=== PATIENT | male | born 1955 | race Caucasian/White ===

== ENCOUNTER 2018-07-14 20:25 | Inpatient (IN) | payer OTHER, MEDICAID ==
[~2018-07-14] VITALS: Ht 167.6 cm; Wt 74.4 kg
[~2018-07-14 20:25] MED LIST: AMLO5TAB4; ATOR40TA70; FAMO-38; GLYC1SUP; INSU3INS6 SQ; LEVO500T2 PO; LISI-604; LOPHC5
[2018-07-14] MEDS ORDERED: SODIUM CHLORIDE 0.9% 1,000 ML IV ONE (21:14)
[2018-07-14 21:53] LABS: BASOPHILS % 0.4 % (0.0-2.0); EOSINOPHILS % 0.6 % (0.0-5.0); HEMATOCRIT. 42.1 % (42.0-52.0); HEMOGLOBIN. 13.9 g/dL (14.0-18.0); LYMPHOCYTES % 10.2 % (20.0-50.0); MEAN CORPUSCULAR HEMOGLOBIN 28.9 pg (28.0-32.0); MEAN CORPUSCULAR VOLUME 87.4 fL (80.0-94.0); MEAN PLATELET VOLUME 7.5 fl (7.4-10.4); MONOCYTES % 5.7 % (2.0-8.0); NEUTROPHILS % 83.1 % (40.0-76.0); PLATELET 357 x1000/uL (130-400); RED BLOOD CELL COUNT 4.82 mill/uL (4.7-6.1); RED CELL DISTRIBUTION WIDTH 16.1 % (11.6-14.6)
[2018-07-14 21:57] LABS: CHLORIDE 107 mEq/L (98-107)
[2018-07-14 22:02] LABS: PARTIAL THROMBOPLASTIN TIME 31.3 sec (23.4-31.0); PROTHROMBIN TIME 10.1 sec (9.6-11.0)
[2018-07-14 22:04] LABS: CLARITY URINE CLOUDY (CLEAR); COLOR URINE YELLOW (YELLOW); KETONES URINE NEGATIVE (NEGATIVE); LEUKOCYTE ESTERASE URINE NEGATIVE (NEGATIVE); NITRITE URINE NEGATIVE (NEGATIVE); OCCULT BLOOD URINE 1+ (NEGATIVE); PROTEIN URINE 2+ (NEGATIVE); SPECIFIC GRAVITY URINE 1.018 (1.005-1.030)
[2018-07-15] MEDS ORDERED: DEXTROSE 50% WATER 50ML SYRINGE IV ONE (00:45)
[2018-07-15] MEDS ORDERED: GUAIFENESIN 200MG/10ML SUGAR FREE UDC PO PRN (09:00)
[2018-07-15] MEDS ORDERED: IPRATROPIUM/ALBUTEROL 0.5-3(2.5)MG/3ML NEB INH PRN (09:00)
[2018-07-15] MEDS ORDERED: CLONIDINE 0.1MG TABLET PO PRN (09:00)
[2018-07-15] MEDS ORDERED: ONDANSETRON HCL 4MG/2ML INJ IV PRN (09:00)
[2018-07-15] MEDS ORDERED: ACETAMINOPHEN 325MG TABLET PO PRN (09:00)
[2018-07-15] MEDS ORDERED: DOCUSATE SODIUM 100MG CAPSULE PO PRN (09:00)
[2018-07-15] MEDS ORDERED: DIPHENHYDRAMINE 50MG/ML VIAL IV PRN (09:00)
[2018-07-15] MEDS ORDERED: MAGNESIUM/ALUMINUM HYDROXIDE/SIMETHICONE 30ML UDC PO PRN (09:00)
[2018-07-15] MEDS ORDERED: HYDROCODONE/ACETAMINOPHEN 5/325MG TABLET PO PRN (09:00)
[2018-07-15 09:37] LABS: PHOSPHORUS 2.5 mg/dL (2.5-4.9)
[2018-07-15 10:15] VITALS: BP 152/72
[2018-07-15] MEDS ORDERED: DEXTROSE 50% WATER 50ML SYRINGE IV NR (10:15)
[2018-07-15] MEDS ORDERED: HYDR-4001 PO (11:50)
[2018-07-15] MEDS ORDERED: LORA-250 PO (11:50)
[2018-07-15] MEDS ORDERED: ACET-2178 PO (11:50)
[2018-07-15] MEDS ORDERED: MOM PO (11:50)
[2018-07-15] MEDS ORDERED: DEPER5 PO (11:50)
[2018-07-15] MEDS ORDERED: QUET50TA13 PO (11:50)
[2018-07-15] MEDS ORDERED: FOLI-43 PO (11:50)
[2018-07-15] MEDS ORDERED: ESCI5TAB PO (11:50)
[2018-07-15 12:00] VITALS: BP 146/52
[2018-07-15] MEDS ORDERED: LORAZEPAM 1MG TABLET PO PRN (12:00)
[2018-07-15] MEDS: BLOOD SUGAR DIAGNOSTIC STRIP TEST SCH ×3 (13:10→21:49)
[2018-07-15] MEDS: INSULIN LISPRO 100 UNITS/ML SUBCUT SCH ×3 (13:10→21:00)
[2018-07-15] MEDS ORDERED: DEXTROSE 50% WATER 50ML SYRINGE IV PRN (13:15)
[2018-07-15 15:57] LABS: CREATINE KINASE 77 IU/L (39-308); CREATINE KINASE MB FRACTION < 1.0 ng/mL (0.5-3.6)
[2018-07-15 16:00] VITALS: BP 137/62
[2018-07-15] MEDS: DIVALPROEX SODIUM 500MG ER TABLET PO SCH (17:44)
[2018-07-15 20:00] VITALS: BP 140/69
[2018-07-15] MEDS ORDERED: MAGNESIUM HYDROXIDE 400MG/5ML 30ML UDC PO SCH (21:00)
[2018-07-15] MEDS ORDERED: ATORVASTATIN CALCIUM 40MG TABLET PO SCH (21:00)
[2018-07-15] MEDS: QUETIAPINE FUMARATE 50MG TABLET PO SCH (21:44)
[2018-07-15] MEDS ORDERED: INSULIN GLARGINE UD 100 UNITS/ML SYR SUBCUT SCH (22:00)
[2018-07-16] VITALS: BP 158/68
[2018-07-16 04:00] VITALS: BP 120/52
[2018-07-16] MEDS: BLOOD SUGAR DIAGNOSTIC STRIP TEST SCH ×2 (07:05→11:57)
[2018-07-16 07:12] LABS: BASOPHILS % 0.9 % (0.0-2.0); HEMATOCRIT. 38.2 % (42.0-52.0); HEMOGLOBIN. 12.8 g/dL (14.0-18.0); MEAN CORPUSCULAR HEMOGLOBIN 29.5 pg (28.0-32.0); MEAN CORPUSCULAR VOLUME 88.2 fL (80.0-94.0); MEAN PLATELET VOLUME 7.6 fl (7.4-10.4); MONOCYTES % 8.9 % (2.0-8.0); NEUTROPHILS % 65.2 % (40.0-76.0); PLATELET 325 x1000/uL (130-400); RED BLOOD CELL COUNT 4.33 mill/uL (4.7-6.1); RED CELL DISTRIBUTION WIDTH 15.7 % (11.6-14.6)
[2018-07-16 07:25] LABS: CHLORIDE 110 mEq/L (98-107)
[2018-07-16 07:39] LABS: CREATINE KINASE 69 IU/L (39-308)
[2018-07-16 07:40] LABS: HDL CHOLESTEROL 32 mg/dL (40-59)
[2018-07-16 07:41] LABS: LDL CHOLESTEROL 118 mg/dL (5-100)
[2018-07-16 07:46] LABS: CREATINE KINASE MB FRACTION < 1.0 ng/mL (0.5-3.6)
[2018-07-16] MEDS: INSULIN LISPRO 100 UNITS/ML SUBCUT SCH ×2 (07:53→12:37)
[2018-07-16 08:00] VITALS: BP 127/66
[2018-07-16] MEDS ORDERED: ENOXAPARIN 40MG/0.4ML SYR SUBCUT SCH (09:00)
[2018-07-16] MEDS: QUETIAPINE FUMARATE 50MG TABLET PO SCH (09:04)
[2018-07-16] MEDS: DIVALPROEX SODIUM 500MG ER TABLET PO SCH (09:04)
[2018-07-16 12:00] VITALS: BP 126/55
[2018-07-16 16:00] VITALS: BP 137/64
[2018-07-16 17:25] VITALS: BP 137/64
== END 2018-07-16 18:07 | DRG 420 ==
LOC: ER 20:25 → 7WST 07-15 01:02 → ENRESERV 07-15 07:22
PROVIDERS: ADMIT Internal Medicine; ATTEND Internal Medicine
DX: E11.649 Type 2 diabetes mellitus with hypoglycemia without coma (principal); I50.9 Heart failure, unspecified; D72.829 Elevated white blood cell count, unspecified; R47.01 Aphasia; Z82.49 Family history of ischemic heart disease and other diseases of the circulatory system; I69.30 Unspecified sequelae of cerebral infarction; Z79.4 Long term (current) use of insulin
CPT/HCPCS: 36415; 71045; 80061; 82550; 82553; 82962; 83036; 83735; 83880; 84100; 84443; 84484; 92610; 93005; 96360; 99285; A6261; J1650; J1815; J7030

== ENCOUNTER 2018-07-29 17:56 | Inpatient (IN) | payer OTHER, MEDICAID ==
[~2018-07-29] VITALS: Ht 170.2 cm; Wt 70.3 kg
[~2018-07-29 17:56] MED LIST changes: +ACET-2178 PO; -AMLO5TAB4; +DEPER5 PO; +ESCI5TAB PO; +FOLI-43 PO; +HYDR-4001 PO; -LISI-604; -LOPHC5; +LORA-250 PO; +MOM PO; +QUET50TA13 PO
[2018-07-29] MEDS ORDERED: SODIUM CHLORIDE 0.9% 1000ML BAG (SEPSIS BOLUS) IV ONE (18:30)
[2018-07-29 19:03] LABS: BASOPHILS % 0.9 % (0.0-2.0); EOSINOPHILS % 4.5 % (0.0-5.0); HEMATOCRIT. 45.6 % (42.0-52.0); HEMOGLOBIN. 15.1 g/dL (14.0-18.0); LYMPHOCYTES % 31.4 % (20.0-50.0); MEAN CORPUSCULAR HEMOGLOBIN 29.3 pg (28.0-32.0); MEAN CORPUSCULAR VOLUME 88.6 fL (80.0-94.0); MONOCYTES % 6.9 % (2.0-8.0); NEUTROPHILS % 56.3 % (40.0-76.0); PLATELET 373 x1000/uL (130-400); RED BLOOD CELL COUNT 5.14 mill/uL (4.7-6.1); RED CELL DISTRIBUTION WIDTH 15.9 % (11.6-14.6)
[2018-07-29 19:10] LABS: PROTHROMBIN TIME 10.5 sec (9.6-11.0)
[2018-07-29 19:11] LABS: CHLORIDE 107 mEq/L (98-107)
[2018-07-29 19:19] LABS: CLARITY URINE CLEAR (CLEAR); COLOR URINE YELLOW (YELLOW); KETONES URINE NEGATIVE (NEGATIVE); LEUKOCYTE ESTERASE URINE NEGATIVE (NEGATIVE); NITRITE URINE NEGATIVE (NEGATIVE); OCCULT BLOOD URINE 3+ (NEGATIVE); PH URINE 6.5 (4.5-8.0); PROTEIN URINE 2+ (NEGATIVE); SPECIFIC GRAVITY URINE 1.018 (1.005-1.030)
[2018-07-29] MEDS ORDERED: LACTULOSE 20G/30ML UDC PO NR (20:30)
[2018-07-29] MEDS ORDERED: CLONIDINE 0.1MG TABLET PO PRN (21:00)
[2018-07-29] MEDS ORDERED: ZOLPIDEM TARTRATE 5MG TABLET PO PRN (21:00)
[2018-07-29] MEDS ORDERED: GUAIFENESIN 200MG/10ML SUGAR FREE UDC PO PRN (21:00)
[2018-07-29] MEDS ORDERED: ACETAMINOPHEN 325MG TABLET PO PRN (21:00)
[2018-07-29] MEDS ORDERED: DOCUSATE SODIUM 100MG CAPSULE PO PRN (21:00)
[2018-07-29] MEDS ORDERED: MAGNESIUM/ALUMINUM HYDROXIDE/SIMETHICONE 30ML UDC PO PRN (21:00)
[2018-07-29] MEDS ORDERED: NITROGLYCERIN 0.4MG TABLET SL SL PRN (21:00)
[2018-07-29] MEDS ORDERED: ONDANSETRON HCL 4MG/2ML INJ IV PRN (21:00)
[2018-07-29] MEDS ORDERED: KETOROLAC 15MG/ML VIAL IV PRN (21:00)
[2018-07-29] MEDS ORDERED: IPRATROPIUM/ALBUTEROL 0.5-3(2.5)MG/3ML NEB INH PRN (21:00)
[2018-07-29] MEDS ORDERED: DEXTROSE 50% WATER 50ML SYRINGE IV PRN (21:15)
[2018-07-29] MEDS ORDERED: INSULIN GLARGINE UD 100 UNITS/ML SYR SUBCUT SCH (22:00)
[2018-07-29 22:03] VITALS: BP 124/67
[2018-07-29 22:30] VITALS: BP 124/67
[2018-07-29 22:34] LABS: T4 FREE 0.83 ng/dL (0.76-1.46)
[2018-07-29 22:52] LABS: VITAMIN B12 SERUM 1022 pg/mL (211-911)
[2018-07-29 23:01] LABS: FOLIC ACID (FOLATE) SERUM > 20.00 ng/mL (>5.38)
[2018-07-30] MEDS ORDERED: INSULIN GLARGINE UD 100 UNITS/ML SYR SUBCUT SCH
[2018-07-30 04:00] VITALS: BP 160/67
[2018-07-30] MEDS: BLOOD SUGAR DIAGNOSTIC STRIP TEST SCH ×3 (06:24→16:45)
[2018-07-30] MEDS: INSULIN LISPRO 100 UNITS/ML SUBCUT SCH ×3 (06:25→17:15)
[2018-07-30 08:00] VITALS: BP_SYST 139; BP_SYST 96; BP_DIAS 54; BP_DIAS 71
[2018-07-30] MEDS ORDERED: CEFTRIAXONE 1 G PREMIX 50 ML IV SCH ×2 (09:00)
[2018-07-30] MEDS ORDERED: CLOPIDOGREL 75MG TABLET PO SCH (09:00)
[2018-07-30] MEDS ORDERED: ENOXAPARIN 40MG/0.4ML SYR SUBCUT SCH (09:00)
[2018-07-30] MEDS ORDERED: FAMOTIDINE 20MG TABLET PO SCH (09:00)
[2018-07-30] MEDS ORDERED: DIVALPROEX SODIUM 500MG ER TABLET PO SCH (09:00)
[2018-07-30 10:00] VITALS: BP 131/61
[2018-07-30 11:00] LABS: *AMPHETAMINES SCREEN URINE NEGATIVE (NEGATIVE); *BARBITURATES SCREEN URINE NEGATIVE (NEGATIVE); *BENZODIAZEPINES SCREEN URINE NEGATIVE (NEGATIVE); *COCAINE SCREEN URINE NEGATIVE (NEGATIVE); METHADONE URINE SCREEN NEGATIVE (NEGATIVE); OPIATES URINE SCREEN NEGATIVE (NEGATIVE)
[2018-07-30 11:01] LABS: CANNABINOID URINE SCREEN NEGATIVE (NEGATIVE); PHENCYCLIDINE URINE SCREEN NEGATIVE (NEGATIVE)
[2018-07-30 12:00] VITALS: BP 135/63
[2018-07-30 15:38] VITALS: BP 132/68
[2018-07-30 16:00] VITALS: BP_SYST 140; BP_SYST 160; BP_DIAS 75; BP_DIAS 76
== END 2018-07-30 18:00 | DRG 52 ==
LOC: ER 17:56 → 5WST 20:22 → EDBEDREQ 20:24 → EDBEDREQTM 20:24 → EDBEDREQSVC 20:24 → ENRESERV 21:12
PROVIDERS: ADMIT Internal Medicine; ATTEND Internal Medicine
DX: G92 Toxic encephalopathy (principal); E44.1 Mild protein-calorie malnutrition; E83.51 Hypocalcemia; G40.909 Epilepsy, unspecified, not intractable, without status epilepticus; I10 Essential (primary) hypertension; E11.9 Type 2 diabetes mellitus without complications; I69.351 Hemiplegia and hemiparesis following cerebral infarction affecting right dominant side; Z68.24 Body mass index [BMI] 24.0-24.9, adult; Z79.4 Long term (current) use of insulin; Z79.899 Other long term (current) drug therapy; Z82.49 Family history of ischemic heart disease and other diseases of the circulatory system
CPT/HCPCS: 36415; 71045; 80061; 80305; 82140; 82607; 82746; 82962; 83036; 83540; 83550; 83605; 83880; 84145; 84439; 84443; 84484; 93005; 93970; 96374; 99291; J0696; J1650; J1815; J7030; J7050